=== PATIENT | male | born 1990 | race Caucasian/White ===

== ENCOUNTER 2016-10-06 22:54 | Emergency (ER) | payer OTHER ==
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
[2016-10-07] MEDS ORDERED: MOTRIN600 M2 PO (00:17)
[2016-10-07] MEDS ORDERED: HYDROCODON-ACE1 EAC7 PO (00:19)
== END 2016-10-07 00:39 | disposition home or self-care (01) ==
LOC: SED 22:54
DX: S40.011A Contusion of right shoulder, initial encounter (principal); S80.01XA Contusion of right knee, initial encounter; V89.2XXA Person injured in unspecified motor-vehicle accident, traffic, initial encounter; Y92.410 Unspecified street and highway as the place of occurrence of the external cause
CPT/HCPCS: 70450; 73030; 73562; 99284

== ENCOUNTER 2016-12-19 22:46 | Emergency (ER) | payer OTHER ==
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
[~2016-12-19 22:46] MED LIST: HYDROCODON-ACE1 EAC7 PO; MOTRIN600 M2 PO
[2016-12-19] MEDS ORDERED: NO MEDICATIONS (23:17)
== END 2016-12-19 23:58 | disposition home or self-care (01) ==
LOC: SED 22:46
DX: S46.911A Strain of unspecified muscle, fascia and tendon at shoulder and upper arm level, right arm, initial encounter (principal); X58.XXXA Exposure to other specified factors, initial encounter; Y93.89 Activity, other specified; Y92.69 Other specified industrial and construction area as the place of occurrence of the external cause
CPT/HCPCS: 73030; 99283

== ENCOUNTER 2017-03-06 23:10 | Emergency (ER) | payer BC ==
[~2017-03-06] VITALS: Ht 188 cm; Wt 74.8 kg
[~2017-03-06 23:10] MED LIST changes: +NO MEDICATIONS
== END 2017-03-07 00:03 | disposition home or self-care (01) ==
LOC: SED 23:10
DX: M75.91 Shoulder lesion, unspecified, right shoulder (principal); G89.29 Other chronic pain
CPT/HCPCS: 99283